=== PATIENT | male | born 1970 | race African-American/Black ===

== ENCOUNTER 2022-10-06 18:19 | Emergency (ER) | payer MEDICAID ==
[~2022-10-06] VITALS: Ht 190.5 cm; Wt 146.0 kg
[2022-10-06 18:42] VITALS: BP 135/88; PULSE 97; RESP 18; TEMP 98.7; O2SAT 100
[2022-10-06] MEDS ORDERED: LISI-649 MT (21:33)
== END 2022-10-06 21:43 | disposition home or self-care (01) ==
LOC: ER 18:19
DX: Z76.0 Encounter for issue of repeat prescription (principal); M79.89 Other specified soft tissue disorders; I10 Essential (primary) hypertension
CPT/HCPCS: 99281